=== PATIENT | male | born 1950 | race Caucasian/White ===

== ENCOUNTER → 2016-10-02 | Outpatient (CLI) | payer OTHER ==
[~2016-10-02] MED LIST: CRES10 PO; TADA10TA PO; VALS1TAB82 PO
--- NOTE | 2016-10-02 17:12 | RADRPT ---
PROCEDURE: US Lower extremity Venous. CLINICAL INDICATION: Right calf pain for 3 weeks. History of spine surgery of May 2016 TECHNIQUE: Multiple sonographic images of the bilateral lower extremity deep venous system was obt ained utilizing grayscale, color-flow, compressive sonography and doppler imaging with augmentation. COMPARISON: None available. FINDINGS: There is normal compressibility / flow within the bilateral common femoral, femoral and popliteal ve ins. The visualized deep veins of the calf are unremarkable. RPTAT:HJJR IMPRESSION: No sonographic evidence for deep venous thrombosis of either lower extremity. Physician Kayleigh Date Time Electronically viewed and signed by Physician Kayleigh on 10/02/2016 17:12 JR/
--- NOTE | 2016-10-02 17:14 | RADRPT ---
PROCEDURE: US Lower extremity Arteries. CLINICAL INDICATION: Ankle brachial indices. Calf pain. TECHNIQUE: Waveforms are observed by the hyperion analyst with ankle brachial indices calculated and gibson bmitted to the PACS for review. COMPARISON: No prior studies are available for comparison. FINDINGS: The worksheet submitted demonstrates triphasic wave forms in the posterior tibial and anterior tibia l arteries bilaterally without evidence of occlusion or stenosis. The right ankle brachial indices are normal estimated at 1.2 for the posterior tibial artery and 1.1 for the anterior tibial artery. The left ankle brachial indices are normal estimated at 1.3 for the posterior tibial artery and 1.1 for the anterior tibial artery. RPTAT:HJJR IMPRESSION: 1. Normal bilateral lower extremity ankle brachial indices. Physician Kayleigh Date Time Electronically viewed and signed by Physician Kayleigh on 10/02/2016 17:14 JR/
== END | disposition home or self-care (01) ==
LOC: VAS 15:40
PROVIDERS: ATTEND Specialist
DX: M79.605 Pain in left leg (principal); M79.604 Pain in right leg
CPT/HCPCS: 93922; 93970